=== PATIENT | male | born 1990 | race African-American/Black ===

== ENCOUNTER 2022-11-11 18:08 | Emergency (ER) | payer OTHER, SELFPAY ==
[2022-11-11 18:16] VITALS: BP 123/68; PULSE 70; RESP 16; TEMP 36.6; O2SAT 98
--- NOTE | 2022-11-11 19:02 | ECG_ITS ---
Measurements Intervals [place] Rate: 61 P: 7 MS: 139 QRS: 63 QRSD: 96 T: 31 QT: 352 QTc: 357 Interpretive Statements SINUS RHYTHM ST ELEVATION, EARLY REPOLARIZATION/CONSIDER PERICARDITIS COMPARED TO ECG 03/03/2019 20:34:[address] ELEVATION IS NOW PRESENT Electronically Signed On 11-12-2022 12:38:48 CDT by Miko Schultz M.D.
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
[2022-11-11] MEDS: KETOROLAC 15 MG/ML VIAL (*BKC) IV PUSH (19:20)
[2022-11-11] MEDS: PROCHLORPERAZINE EDISYLATE 10 MG/2 ML VIAL IV PUSH (19:21)
[2022-11-11] MEDS: diphenhydrAMINE HCl INJ 50 MG/ML VIAL 25 MG IV PUSH (19:21)
[2022-11-11 19:23] LABS: Basophils Percent Auto 0.6 % (0.2-1.2); Eosinophils Absolute Auto 0.1 K/mm3 (0-0.3); Eosinophils Percent Auto 1.1 % (0-4.4); Hemoglobin 14.3 g/dL (14.0-18.0); Immature Granulocyte Absolute 0.01 K/mm3 (0.00-0.031); Immature Granulocyte Percent A 0.2 % (0-0.5); Lymphocytes Absolute Auto 2.24 K/mm3 (0.9-3.2); Lymphocytes Percent Auto 41.4 % (18.3-44.2); Mean Corpuscular HGB Conc 33.3 g/dl (32-36); Mean Corpuscular Hemoglobin 30.2 pg (26-34); Mean Corpuscular Volume 90.7 fl (80-100); Mean Platelet Volume 9.8 fl (7.4-10.4); Monocytes Absolute Auto 0.4 K/mm3 (0.1-0.6); Monocytes Percent Auto 8.1 % (2.6-8.5); Neutrophils Absolute Auto 2.6 K/mm3 (1.3-6.7); Neutrophils Percent Auto 48.6 % (45.5-73.1); Platelet Count Result 247 k/mm3 (150-375); Red Blood Count 4.74 M/mm3 (4.6-6.20); Red Cell Distribution Width 12.2 % (11.5-14.5); White Blood Count 5.4 K/mm3 (4.5-10.0)
[2022-11-11 19:30] LABS: Alanine Aminotransferase 26 U/L (6-50); Albumin Level 4.2 g/dL (3.5-5.1); Alkaline Phosphatase 66 U/L (38-126); Anion Gap 4 mmol/L (8-16); Aspartate Amino Transferase 34 U/L (17-59); Bilirubin,Total 0.4 mg/dL (0.2-1.3); Blood Urea Nitrogen 15 mg/dL (9-20); Calcium 8.9 mg/dL (8.4-10.2); Carbon Dioxide 30 mmol/L (22-30); Chloride 105 mmol/L (98-107); Estimated CRCL calculation 110 ml/min; Estimated Glomerular Filt Rate > 60; Glucose 105 mg/dL (65-110); Potassium 4.3 mmol/L (3.4-5.0); Sodium 139 mmol/L (137-145)
[2022-11-11] MEDS: SODIUM CHLORIDE 0.9% IV 500 ML 999 ML IV CONT (20:42)
[2022-11-11] MEDS: ORPHENADRINE CITRATE 100 MG TABLET.ER PO (20:47)
[2022-11-11 21:28] VITALS: BP 104/74; PULSE 66; RESP 16; O2SAT 98
== END 2022-11-11 21:30 | disposition home or self-care (01) ==
PROVIDERS: Emergency Provider Physician Assistant
DX: S06.0XAD Concussion with loss of consciousness status unknown, subsequent encounter (principal); V49.9XXD Car occupant (driver) (passenger) injured in unspecified traffic accident, subsequent encounter
CPT/HCPCS: 36415; 80053; 85025; 93005; 96361; 96374; 96375; 99284; A9270; J0780; J1200; J1885; J7040

== ENCOUNTER 2024-01-08 11:35 | Emergency (ER) | payer SELFPAY ==
[2024-01-08 11:38] VITALS: BP 141/77; PULSE 75; RESP 18; TEMP 36.6; O2SAT 99
--- NOTE | 2024-01-08 12:22 | ED.LOWEXIN ---
HPI - Extremity Injury (Lower) General Chief Complaint: Extremity Injury, Lower Stated Complaint: left foot injury Time Seen by Provider: 01/08/24 12:03 History of Present Illness HPI Narrative: Patient is a 33-year-old male who presents ER with pain to the 1st MTP of the left foot. Ongoing for 24 hours. Worse when he transitions his weight. No known trauma. No redness. Worse on the plantar aspect. He works for waste management wear steel-toed boots. No additional concerns. No alleviating factors other than rest. Related Data Allergies Allergy/AdvReac Type Severity Reaction Status Date / Time No Known Allergies Allergy Other Uncoded 01/08/24 12:18 Review of Systems Constitutional: Constitutional: Reports no additional constitutional complaints Musculoskeletal: Musculoskeletal: Denies myalgias, Reports arthralgias and Denies joint swelling Integumentary/Breasts: Skin/Breast: Reports system reviewed and no additional complaints, except as docu PMFSH Past Medical History Medical History No significant past medical history Surgical History Surgical History (Updated 11/08/22 @ 19:44 by Nigel Cardenas MD) No significant past surgical history Social History Social History (Updated 11/08/22 @ 19:44 by Nigel Cardenas MD) Smoking status: Never smoker Alcohol intake: never Substance use: never Exam Narrative: GENERAL: Well-appearing, well-nourished, and in no acute distress. HEAD: Normocephalic, atraumatic. EXTREMITIES: Normal range of motion. No edema. TTP plantar aspect left 1st MTP. No calcaneal tenderness. No plantar fascial tenderness. No swelling or redness. SKIN: Warm, dry, no rash. NEURO: Alert and oriented x3. PSYCH: Normal mood and affect. Course Course Emergency Course: Likely toe sprain. Discussed anti-inflammatories and flu so postop shoe for comfort. Vital Signs Vital signs: Vital Signs Temperature 97.8 F 01/08/24 11:38 Pulse Rate 75 01/08/24 11:38 Respiratory Rate 18 01/08/24 11:38 Blood Pressure 141/77 H 01/08/24 11:38 Pulse Oximetry 99 01/08/24 11:38 Temperature 97.8 F 01/08/24 11:38 Pulse Rate 75 01/08/24 11:38 Respiratory Rate 18 01/08/24 11:38 Blood Pressure 141/77 H 01/08/24 11:38 Pulse Oximetry 99 01/08/24 11:38 MDM - Extremity Injury (Lower) Imaging Data Radiologist's impression: ITS Impressions Foot X-Ray 01/08/24 12:00 Impression: Unremarkable left foot radiographs. Discharge Plan Discharge Clinical Impression: Sprain of toe Patient Disposition: Home, Self-Care Condition: Stable Instructions: Foot Sprain (ED) Additional Instructions: Return to the ER if you suffer a new injury, you have fever over 100.4? F, or you have additional concerns. Prescriptions: New naproxen 375 mg tablet 375 mg PO BID Qty: 14 0RF Follow-up/Referrals: PHYSICIAN,SET UP MECHANIC AUTOMATIC LINE [Primary Care Provider] - Sameer Andino MD [Physician] - 1 Week Stand Alone Forms: Work/School Release IP
== END 2024-01-08 13:00 | disposition home or self-care (01) ==
LOC: ANHED 12:36
PROVIDERS: Emergency Provider Emergency Medicine; PCP Family Medicine
DX: S93.522A Sprain of metatarsophalangeal joint of left great toe, initial encounter (principal); X58.XXXA Exposure to other specified factors, initial encounter
CPT/HCPCS: 73630; 99283